=== PATIENT | male | born 2000 | race Hispanic/Latino ===

== ENCOUNTER 2022-08-13 21:07 | Emergency (ER) | payer MEDICAID ==
[~2022-08-13] VITALS: Ht 175.3 cm; Wt 129.3 kg
[2022-08-13 23:18] LABS: BASOPHILS % (AUTO) 0.3 % (0.0-5.0); EOSINOPHILS % (AUTO) 0.5 % (0.0-8.0); HEMATOCRIT 43.8 % (42-54); LYMPHOCYTES % (AUTO) 16.8 % (21.0-51.0); MEAN CORPUSCULAR HEMOGLOBIN 28.6 pg (27.0-33.0); MEAN CORPUSCULAR HGB CONC 33.3 g/dL (32.0-36.0); MEAN CORPUSCULAR VOLUME 85.9 fL (80-100); NEUTROPHILS % (AUTO) 72.6 % (40.0-77.0); PLATELET COUNT (AUTO) 351 K/uL (130-400); RED CELL DISTRIBUTION WIDTH 16.7 % (11.0-15.5)
[2022-08-13 23:20] LABS: CREATININE 1.3 mg/dL (0.5-1.5); POTASSIUM 3.6 mmol/L (3.5-5.1)
[2022-08-13 23:23] LABS: APPEARANCE,URINE CLEAR (CLEAR); BILIRUBIN,URINE NEGATIVE (NEGATIVE); COLOR,URINE YELLOW (YELLOW); GLUCOSE, URINE (UA) NEGATIVE (NEGATIVE); KETONES,URINE NEGATIVE (NEGATIVE); LEUKOCYTE ESTERASE ,URINE NEGATIVE Leu/uL (NEGATIVE); NITRATE,URINE NEGATIVE (NEGATIVE); OCCULT BLOOD,URINE NEGATIVE (NEGATIVE); PH,URINE 5.5 (5.0-8.0); PROTEIN,URINE 50 mg/dL (NEGATIVE); UROBILINOGEN,URINE 0.2 mg/dL (0.2-1.0)
[2022-08-13 23:24] LABS: ALBUMIN 3.5 g/dL (3.5-5.0); TOTAL PROTEIN, SERUM 7.2 g/dL (6.0-8.3)
[2022-08-13 23:28] LABS: MUCUS,URINE MOD LPF (None Seen); RBC,URINE 0-1 /HPF (0-1); SQUAMOUS EPITHELIAL CELL,UR FEW /HPF (0-2)
[2022-08-14] MEDS ORDERED: IOHEXOL 350 MG/ML 100ML INFUS..BTL IV ONE (00:15)
[2022-08-14 01:00] VITALS: BP 114/66
[2022-08-14] MEDS ORDERED: CIPR-278 PO (01:06)
== END 2022-08-14 01:14 | disposition home or self-care (01) ==
LOC: EDH 21:07
DX: K52.9 Noninfective gastroenteritis and colitis, unspecified (principal); E11.9 Type 2 diabetes mellitus without complications; Z98.890 Other specified postprocedural states
CPT/HCPCS: 99285; 74177; 71045; 80053; 85025; 81001; 36415; Q9967

== ENCOUNTER 2022-12-14 13:02 | Observation (INO) | payer MEDICAID ==
[~2022-12-14] VITALS: Ht 175.3 cm; Wt 125.7 kg
[~2022-12-14 13:02] MED LIST: CIPR-278 PO
[2022-12-14] MEDS ORDERED: ONDANSETRON 4MG INJ IVP ONE (13:30)
[2022-12-14] MEDS ORDERED: 0.9%NACL 1000ML 1,000 ML IV ONE ×2 (13:30→14:30)
[2022-12-14 13:47] LABS: BASOPHILS % (AUTO) 0.1 % (0.0-5.0); EOSINOPHILS % (AUTO) 0.1 % (0.0-8.0); HEMATOCRIT 59.1 % (42-54); LYMPHOCYTES % (AUTO) 5.4 % (21.0-51.0); MEAN CORPUSCULAR HEMOGLOBIN 28.2 pg (27.0-33.0); MEAN CORPUSCULAR HGB CONC 32.8 g/dL (32.0-36.0); MEAN CORPUSCULAR VOLUME 85.9 fL (80-100); MONOCYTES % (AUTO) 3.2 % (3.0-13.0); NUCLEATED RED BLOOD CELLS 0.2 % (0.0-0.19); PLATELET COUNT (AUTO) 369 K/uL (130-400); RED BLOOD CELL COUNT(AUTO) 6.88 MIL/uL (4.50-6.20); RED CELL DISTRIBUTION WIDTH 15.2 % (11.0-15.5); WHITE BLOOD COUNT (AUTO) 9.1 K/uL (4.8-10.8)
[2022-12-14 13:55] LABS: CREATININE 2.8 mg/dL (0.5-1.5); POTASSIUM 5.2 mmol/L (3.5-5.1)
[2022-12-14 14:00] LABS: ALBUMIN 4.6 g/dL (3.5-5.0); TOTAL PROTEIN, SERUM 8.7 g/dL (6.0-8.3)
[2022-12-14] MEDS ORDERED: LABETALOL 20MG SYG IV PRN (14:30)
[2022-12-14] MEDS ORDERED: ACETAMINOPHEN 325 MG TAB PO PRN (14:30)
[2022-12-14] MEDS ORDERED: SODIUM ZIRCONIUM CYCLOSILICATE 5 GM POWD.PACK PO SCH (14:30)
[2022-12-14] MEDS ORDERED: ONDANSETRON 4MG INJ IVP PRN (14:30)
[2022-12-14] MEDS ORDERED: ALBUTEROL 0.083% 2.5 MG/3 ML INH IH PRN (14:30)
[2022-12-14] MEDS ORDERED: KAYEXALATE 15GM/60ML PO PRN (14:30)
[2022-12-14] MEDS ORDERED: HYDRALAZINE 20MG/ML VIAL IV PRN (14:30)
[2022-12-14 15:29] LABS: APPEARANCE,URINE CLOUDY (CLEAR); BILIRUBIN,URINE NEGATIVE (NEGATIVE); COLOR,URINE YELLOW (YELLOW); GLUCOSE, URINE (UA) NEGATIVE (NEGATIVE); KETONES,URINE NEGATIVE (NEGATIVE); LEUKOCYTE ESTERASE ,URINE NEGATIVE Leu/uL (NEGATIVE); NITRATE,URINE NEGATIVE (NEGATIVE); PROTEIN,URINE 200 mg/dL (NEGATIVE); UROBILINOGEN,URINE 0.2 mg/dL (0.2-1.0)
[2022-12-14 15:43] LABS: BACTERIA,URINE FEW /HPF (None Seen); HYALINE CASTS, URINE 51-100 /LPF (0-1 /LPF); MUCUS,URINE RARE LPF (None Seen); SQUAMOUS EPITHELIAL CELL,UR RARE /HPF (0-2)
[2022-12-14] MEDS ORDERED: SODIUM CHLORIDE 3% FOR INHALATION 4 ML/AMP VIAL.NEB IH ONE (16:18)
[2022-12-14] MEDS: INSULIN HUMULIN R 100 UNIT/ML 3ML SQ SCH ×2 (16:30→20:22)
[2022-12-14] MEDS ORDERED: LIDOCAINE HCL 2% VISCOUS 15 ML UDCUP PO ONE (17:30)
[2022-12-14] MEDS ORDERED: MAG/ALUM/SIMETH 30 ML UDCUP PO ONE (17:30)
[2022-12-14] MEDS: 0.9%NACL 1000ML 1,000 ML IV SCH ×2 (17:42→22:19)
[2022-12-14 19:15] VITALS: BP 111/64
[2022-12-14 23:36] VITALS: BP 102/56
[2022-12-15 04:00] VITALS: BP 91/80
[2022-12-15] MEDS: 0.9%NACL 1000ML 1,000 ML IV SCH ×2 (05:29→22:30)
[2022-12-15] MEDS: INSULIN HUMULIN R 100 UNIT/ML 3ML SQ SCH ×2 (05:29→11:30)
[2022-12-15 05:47] LABS: CREATININE 1.7 mg/dL (0.5-1.5); MAGNESIUM 2.3 mg/dL (1.80-2.40); PHOSPHORUS 2.9 mg/dL (2.5-4.9); POTASSIUM 4.2 mmol/L (3.5-5.1); THYROID STIMULATING HORMONE 1.06 uIU/mL (0.36-3.74)
[2022-12-15 08:00] VITALS: BP 101/64
[2022-12-15 11:52] VITALS: BP 119/74
[2022-12-15 16:00] VITALS: BP 113/62
[2022-12-15 20:00] VITALS: BP 99/62
[2022-12-16] VITALS: BP 112/67
[2022-12-16 04:00] VITALS: BP 106/62
[2022-12-16 05:08] LABS: BASOPHILS % (AUTO) 0.2 % (0.0-5.0); EOSINOPHILS % (AUTO) 0.2 % (0.0-8.0); HEMATOCRIT 48.1 % (42-54); MEAN CORPUSCULAR HEMOGLOBIN 28.1 pg (27.0-33.0); MEAN CORPUSCULAR HGB CONC 32.6 g/dL (32.0-36.0); MEAN CORPUSCULAR VOLUME 86.2 fL (80-100); MONOCYTES % (AUTO) 8.5 % (3.0-13.0); NEUTROPHILS % (AUTO) 77.6 % (40.0-77.0); PLATELET COUNT (AUTO) 230 K/uL (130-400); RED BLOOD CELL COUNT(AUTO) 5.58 MIL/uL (4.50-6.20); RED CELL DISTRIBUTION WIDTH 14.3 % (11.0-15.5); WHITE BLOOD COUNT (AUTO) 4.2 K/uL (4.8-10.8)
[2022-12-16 05:20] LABS: CREATININE 1.5 mg/dL (0.5-1.5); MAGNESIUM 2.2 mg/dL (1.80-2.40); POTASSIUM 3.9 mmol/L (3.5-5.1)
[2022-12-16] MEDS: 0.9%NACL 1000ML 1,000 ML IV SCH ×2 (06:16→14:30)
[2022-12-16 08:00] VITALS: BP 104/61
[2022-12-16] MEDS ORDERED: PANTOPRAZOLE 40 MG TAB DR PO SCH (09:00)
[2022-12-16] MEDS ORDERED: ENOXAPARIN SODIUM 40 MG/0.4 ML SYRINGE SQ SCH (09:00)
[2022-12-16 12:11] VITALS: BP 109/60
[2022-12-16 16:00] VITALS: BP 130/66
== END 2022-12-16 16:30 | disposition home or self-care (01) ==
LOC: EDH 13:02 → EDHIP 13:03 → 4DH 19:02
PROVIDERS: ADMIT Internal Medicine; ATTEND Internal Medicine
DX: R11.2 Nausea with vomiting, unspecified (principal); Z20.822 Contact with and (suspected) exposure to COVID-19; T45.1X5A Adverse effect of antineoplastic and immunosuppressive drugs, initial encounter; E87.70 Fluid overload, unspecified; C41.9 Malignant neoplasm of bone and articular cartilage, unspecified; C78.00 Secondary malignant neoplasm of unspecified lung; D75.1 Secondary polycythemia; N17.9 Acute kidney failure, unspecified; E11.9 Type 2 diabetes mellitus without complications; E86.0 Dehydration; R74.01 Elevation of levels of liver transaminase levels; Z85.830 Personal history of malignant neoplasm of bone; Z79.899 Other long term (current) drug therapy; Z98.890 Other specified postprocedural states
CPT/HCPCS: 96374; 96361 ×3; 99285; 80053; 85025 ×2; 87880; 87804 ×2; 82948 ×9; 81001; 36415 ×3; 87635; 74176; 84443; 83735 ×2; 84100 ×2; 80048 ×2; 76700; 84145; 96372; G0378 ×50; J7030 ×2; J2405; J1650

== ENCOUNTER 2023-12-21 22:51 | Emergency (ER) | payer MEDICAID ==
[~2023-12-21] VITALS: Ht 175.3 cm; Wt 138.8 kg
[2023-12-21] MEDS: 0.9%NACL 1000ML 2,121 ML IV ONE (23:28)
[2023-12-21 23:32] LABS: BASOPHILS # (AUTO) 0.04 K/uL (0.00-0.20); BASOPHILS % (AUTO) 1.7 % (0.0-5.0); EOSINOPHILS # (AUTO) 0.07 K/uL (0.00-0.70); HEMATOCRIT 43.6 % (42-54); IMMATURE GRANULOCYTE ABSOLUTE 0.27 K/uL (0-1); LYMPHOCYTES # (AUTO) 0.3 K/uL (1.0-4.8); LYMPHOCYTES % (AUTO) 11.4 % (21.0-51.0); MEAN CORPUSCULAR HEMOGLOBIN 29.5 pg (27.0-33.0); MEAN CORPUSCULAR HGB CONC 33.9 g/dL (32.0-36.0); MEAN CORPUSCULAR VOLUME 86.9 fL (79-99); MONOCYTES # (AUTO) 0.4 K/uL (0.1-1.0); MONOCYTES % (AUTO) 15.6 % (3.0-13.0); NEUTROPHILS # (AUTO) 1.4 K/uL (1.8-7.7); NEUTROPHILS % (AUTO) 56.9 % (40.0-77.0); PLATELET COUNT (AUTO) 37 K/uL (130-400); RED BLOOD CELL COUNT(AUTO) 5.02 MIL/uL (4.50-6.20); WHITE BLOOD COUNT (AUTO) 2.4 K/uL (4.8-10.8)
[2023-12-21 23:37] LABS: INR 1.01 (0.85-1.15); PROTHROMBIN TIME 11.9 SEC (9.6-11.6)
[2023-12-21 23:38] LABS: PARTIAL THROMBOPLASTIN TIME 25.7 SEC (26.3-35.5)
[2023-12-21 23:40] LABS: CREATININE 1.1 mg/dL (0.5-1.3); POTASSIUM 3.6 mmol/L (3.5-5.1)
[2023-12-21 23:45] LABS: ALBUMIN 3.3 g/dL (3.5-5.0); BILIRUBIN,TOTAL 0.7 mg/dL (0.2-1.0); TOTAL PROTEIN, SERUM 6.2 g/dL (6.0-8.3)
[2023-12-21 23:55] LABS: BAND NEUTROPHILS % (MANUAL) 5 % (0-2); BASOPHILS % (MANUAL) 1 % (0-2); EOSINOPHILS % (MANUAL) 4 % (1-6); LYMPHOCYTES % (MANUAL) 15 % (22-44); MAN.DIFF COMMENT-IMPRESSION MANUAL DIFFERENTIAL; METAMYELOCYTES % 2 % (0-0); MONOCYTES % (MANUAL) 22 % (2-9); PROMYELOCYTES % 1 (0-0); SEGMENTED NEUTROPHILS % 50 % (40-70); TOTAL CELLS COUNTED 100
[2023-12-21 23:56] LABS: WBC MORPHOLOGY IMMATURE GRAN 1+
[2023-12-22 02:34] LABS: RAPID GROUP A STREP negative (NEGATIVE); SARS-CoV-2, RNA, NAAT NEGATIVE SARS CoV-2 (NEGATIVE)
[2023-12-22 02:36] LABS: INFLUENZA TYPE A NEGATIVE FOR TYPE A (NEG); INFLUENZA TYPE B NEGATIVE FOR TYPE B (NEG)
[2023-12-22 03:13] LABS: APPEARANCE,URINE CLEAR (CLEAR); BILIRUBIN,URINE NEGATIVE (NEGATIVE); COLOR,URINE LIGHT-YELLOW (YELLOW); GLUCOSE, URINE (UA) >=1000 mg/dL (NEGATIVE); KETONES,URINE 20 mg/dL (NEGATIVE); LEUKOCYTE ESTERASE ,URINE NEGATIVE Leu/uL (NEGATIVE); NITRATE,URINE NEGATIVE (NEGATIVE); OCCULT BLOOD,URINE NEGATIVE (NEGATIVE); PH,URINE 5.5 (5.0-8.0); PROTEIN,URINE NEGATIVE (NEGATIVE); UROBILINOGEN,URINE 0.2 mg/dL (0.2-1.0)
[2023-12-22 03:17] LABS: ADD UA MICROSCOPIC YES
[2023-12-22 03:18] LABS: RBC,URINE 0-1 /HPF (0-1); SQUAMOUS EPITHELIAL CELL,UR RARE /HPF (0-2)
[2023-12-22 04:29] VITALS: BP 125/85; PULSE 85; RESP 20
== END 2023-12-22 04:54 | disposition left against medical advice (07) ==
LOC: EDH 22:51
DX: R50.9 Fever, unspecified (principal); E11.9 Type 2 diabetes mellitus without complications; D69.6 Thrombocytopenia, unspecified; Z20.822 Contact with and (suspected) exposure to COVID-19; Z98.890 Other specified postprocedural states
CPT/HCPCS: 99285; 96360; 87635; 82550; 84484; 80053; 85025; 85610; 85730; 87040 ×2; 87088; 87880; 87420; 87804 ×2; 82948; 83605; 81001; 36415 ×2; 71045; J7030